=== PATIENT | male | born 1970 | race Caucasian/White ===

== ENCOUNTER → 2022-12-08 | Outpatient (CLI) | payer BC ==
--- NOTE | 2022-12-08 10:15 | XR ---
EXAMINATION TYPE: XR chest 2V DATE OF EXAM: 12/08/2022 COMPARISON: NONE TECHNIQUE: PA and lateral views submitted. HISTORY: Shortness of breath FINDINGS: The lungs are clear and there is no pneumothorax, pleural effusion, or focal pneumonia. Heart size normal and no overt failure. There is a small 6 mm nodule along the left heart border. Osseous structures demonstrate hypertrophic and degenerative changes of the spine. The heart is enlar ged and there are subsegmental changes along the lateral margin of the heart border. Hyperinflation s uggests COPD. AC joint arthropathy. IMPRESSION: 1. No acute process. Cardiomegaly. There is a small nodule adjacent to the left cardiac border measur ing 6 mm. Recommend short-term follow-up CT.
== END | disposition home or self-care (01) ==
LOC: RADXRYALE 09:14
PROVIDERS: ATTEND Physician Assistant
DX: I50.33 Acute on chronic diastolic (congestive) heart failure (principal); R91.1 Solitary pulmonary nodule; R06.02 Shortness of breath
CPT/HCPCS: 71046